=== PATIENT | male | born 1995 | race African-American/Black ===

== ENCOUNTER → 2025-05-15 | Emergency (ER) | payer MEDICAID ==
[~2025-05-15] VITALS: Ht 193 cm; Wt 146.0 kg
[~2025-05-15] MED LIST: BENZ100C86 MT; CLIN-194 MT; DEX4 MT; GUAI200T5 MT; HYDR-459 MT
[2025-05-15 18:17] VITALS: BP 145/95; TEMP 37.3; O2SAT 99
[2025-05-15 18:18] VITALS: PULSE 98; RESP 16; O2SAT 100
== END ==
LOC: ER 18:03
DX: J06.9 Acute upper respiratory infection, unspecified (principal); B97.89 Other viral agents as the cause of diseases classified elsewhere
CPT/HCPCS: 99283

== ENCOUNTER 2025-05-19 11:36 | Emergency (ER) | payer MEDICAID ==
[~2025-05-19] VITALS: Ht 195.6 cm; Wt 104.0 kg
[~2025-05-19 11:36] MED LIST changes: -GUAI200T5 MT; -HYDR-459 MT
[2025-05-19 11:56] VITALS: O2SAT 99
[2025-05-19] MEDS ORDERED: HYDR-459 MT (13:37)
[2025-05-19] MEDS ORDERED: GUAI200T5 MT (13:38)
[2025-05-19 14:22] VITALS: BP 145/101; PULSE 95; RESP 16; TEMP 36.7; O2SAT 99
== END 2025-05-19 14:23 | disposition home or self-care (01) ==
LOC: ER 11:36
DX: F41.9 Anxiety disorder, unspecified (principal); Z79.899 Other long term (current) drug therapy
CPT/HCPCS: 93005; 99283